=== PATIENT | female | born 1965 | race Caucasian/White ===

== ENCOUNTER 2020-06-26 20:47 | Emergency (ER) | payer OTHER ==
[~2020-06-26] VITALS: Ht 182.9 cm; Wt 89.0 kg
[~2020-06-26 20:47] MED LIST: CHOL200024 PO; LEVO112T2 PO; LIOT5TAB10 PO; MULT-26 PO; NORG1TAB32 PO
[2020-06-26] MEDS ORDERED: LIDOCAINE 1%, 10ML INFIL ONE (21:30)
--- NOTE | 2020-06-26 21:36 | NUR ---
PT. IS A & O X 4 WITH A GCS OF 15. PT. REPORTS FALLING AT HOME AND HITTING HER HEAD ON A TABLE WITH + LOC. PT. STATES SHE DOESN'T TAKE BLOOD THINNERS. PT.'S REPORTS THE PT. DOES DRINK 2 TO 3 GLASSES OF WINE NIGHTLY AND IS ON GABAPENTIN FOR HER NEUROSARCOIDOSIS. PT.'S LUNGS ARE CTA. MM ARE PINK AND MOIST WITH PULSES +2 THROUGHOUT. PT.'S ABD. IS SOFT AND ROUND WITH BS + X 4 QUADS. PT. DOES HAVE A WOUND TO HER RIGHT SKULL THAT IS OOZING A SMALL AMOUNT OF BLOOD. PT.'S WOUND WAS DRIED AND THE PT. WAS TAKEN TO CT SCAN. PT. DOES NOT C/O NECK OR BACK PAIN AT THIS TIME. SIDERAILS REMAIN UP X 2.
[2020-06-26] MEDS ORDERED: BACL20TA PO (21:48)
[2020-06-26] MEDS ORDERED: [UNRECOGNIZED DRUG - OTHER] (21:48)
[2020-06-26] MEDS ORDERED: DULO30CA2 PO (21:48)
[2020-06-26] MEDS ORDERED: GABA600T7 PO (21:48)
[2020-06-26] MEDS ORDERED: LEVO125T5 PO (21:48)
[2020-06-26] MEDS ORDERED: TIZANIDINE (21:48)
--- NOTE | 2020-06-26 21:49 | NUR ---
PT. RETURNS FROM CT SCAN. PT.'S HAS A ONE INCH LACERATION TO HER RIGHT SKULL. PT.'S WOUND WAS IRRIGATED AND CLEANSED. PT. IS TOLERATING THE PROCEDURE WELL.
[2020-06-26] MEDS ORDERED: LIDOCAINE-MPF 1%, 5ML ONE (22:42)
[2020-06-26] MEDS ORDERED: KETOROLAC 30 MG/1 ML ONE (22:43)
[2020-06-26] MEDS ORDERED: DIPHENHYDRAMINE 25 MG CAPSULE ONE (22:44)
[2020-06-26] MEDS ORDERED: DIPHENHYDRAMINE 25 MG CAPSULE PO ONE (23:30)
[2020-06-26] MEDS ORDERED: KETOROLAC 30 MG/1 ML IM ONE (23:30)
[2020-06-26 23:45] VITALS: BP 120/74
--- NOTE | 2020-06-26 23:54 | NUR ---
Patient and significant other given discharge instructions and they have confirmed that they understand the instructions, all questions answered. Patient stable and wheeled out with to private vehicle.
== END 2020-06-26 23:55 | disposition home or self-care (01) ==
LOC: ED 21:20
DX: S01.01XA Laceration without foreign body of scalp, initial encounter (principal); R55 Syncope and collapse; W01.0XXA Fall on same level from slipping, tripping and stumbling without subsequent striking against object, initial encounter; Y93.89 Activity, other specified; Y92.009 Unspecified place in unspecified non-institutional (private) residence as the place of occurrence of the external cause; Y99.8 Other external cause status
CPT/HCPCS: 12032; 70450; 72125; 96372; 99285; J1885; Q0163

== ENCOUNTER 2020-07-30 13:00 | Outpatient (CLI) | payer OTHER ==
[~2020-07-30 13:00] MED LIST changes: +BACL20TA PO; +DULO30CA2 PO; +GABA600T7 PO; +LEVO125T5 PO; +TIZANIDINE; +[UNRECOGNIZED DRUG - OTHER]
== END 2020-07-30 23:59 | disposition home or self-care (01) ==
LOC: CFH 13:00
PROVIDERS: ATTEND Naturopath
DX: Z12.31 Encounter for screening mammogram for malignant neoplasm of breast (principal)
CPT/HCPCS: 77063; 77067

== ENCOUNTER 2020-10-08 05:59 | Observation (INO) | payer OTHER ==
[2020-10-05 11:00] LABS: INTERNATIONAL NORMALIZED RATIO 1.07 (0.93-1.1); PROTHROMBIN TIME 11.4 Seconds (9.6-11.5)
[~2020-10-08] VITALS: Ht 182.9 cm; Wt 90.0 kg
[~2020-10-08 05:59] MED LIST changes: +DULO60CA7 PO; +LEVO88TA4 PO; +MYCO500T PO; +TIZA4TAB2 PO
[2020-10-08] MEDS ORDERED: LACTATED RINGERS 1,000 ML IV SCH (06:30)
[2020-10-08] MEDS ORDERED: CHLORHEXIDINE 15 ML UDC PO ONE (06:30)
[2020-10-08] MEDS ORDERED: KETOROLAC 60 MG/2 ML ONE (06:35)
[2020-10-08] MEDS ORDERED: VANCOMYCIN 1,000 MG ONE (06:36)
[2020-10-08] MEDS ORDERED: ROPIvacaine/PF 0.5%, 20 ML ONE (06:36)
[2020-10-08] MEDS ORDERED: TRANEXAMIC ACID 100 MG/ML, 10ML ONE ×2 (06:36)
[2020-10-08] MEDS ORDERED: ROPIvacaine/PF 0.5%, 30 ML ONE (06:36)
[2020-10-08] MEDS ORDERED: EPINEPHRINE 1 MG/ML, 1ML ONE (06:36)
[2020-10-08] MEDS ORDERED: SODIUM CHLORIDE 0.9% 50 ML ONE (06:37)
[2020-10-08] MEDS ORDERED: MIDAZOLAM 1 MG/ML, 2ML ONE (06:42)
[2020-10-08] MEDS ORDERED: FENTANYL PF 250 MCG/5ML ONE (06:42)
[2020-10-08] MEDS ORDERED: CEFAZOLIN 1,000 MG ONE ×2 (06:46)
[2020-10-08] MEDS ORDERED: PROPOFOL 10 MG/ML, 20ML ONE (06:46)
[2020-10-08] MEDS ORDERED: ONDANSETRON 2MG/ML, 2ML ONE ×3 (06:46→08:43)
[2020-10-08] MEDS ORDERED: ROCURONIUM 10MG/ML,5ML ONE (06:46)
[2020-10-08] MEDS ORDERED: NS + 20MEQ KCL 1,000 ML IV SCH (07:00)
[2020-10-08] MEDS: CEFAZOLIN PMX 2GM/50ML 50 ML IVPB SCH ×4 (07:00→23:52)
[2020-10-08] MEDS ORDERED: ACETAMINOPHEN 650 MG/20.3 ML UDC PO PRN (07:00)
[2020-10-08] MEDS ORDERED: ONDANSETRON 4 MG TABLET PO PRN (07:00)
[2020-10-08] MEDS ORDERED: OXYcodone IR 5MG TABLET PO PRN (07:00)
[2020-10-08] MEDS ORDERED: ONDANSETRON 2MG/ML, 2ML IV PRN (07:00)
[2020-10-08] MEDS ORDERED: SENNA/DOCUSATE TABLET PO PRN (07:00)
[2020-10-08] MEDS ORDERED: HYDROcodone/APAP 5/325 TABLET PO PRN (07:00)
[2020-10-08] MEDS ORDERED: MAGNESIUM HYDROXIDE 8%, 30ML UDC PO PRN (07:00)
[2020-10-08] MEDS ORDERED: ZOLPIDEM 5MG TABLET PO PRN (07:00)
[2020-10-08] MEDS ORDERED: DIPHENHYDRAMINE 50 MG CAPSULE PO PRN (07:00)
[2020-10-08] MEDS ORDERED: BISACODYL 10 MG SUPP PR PRN (07:00)
[2020-10-08] MEDS ORDERED: PROMETHAZINE 25 MG/ML, 1ML IVPush PRN (07:30)
[2020-10-08] MEDS ORDERED: DIPHENHYDRAMINE 50 MG/ML, 1ML IVPush PRN (07:30)
[2020-10-08] MEDS ORDERED: MEPERIDINE/PF 25MG/0.5ML IVPush PRN (07:30)
[2020-10-08] MEDS ORDERED: ACETAMINOPHEN 325 MG TABLET PO PRN (07:30)
[2020-10-08] MEDS ORDERED: ONDANSETRON 2MG/ML, 2ML IVPush PRN (07:30)
[2020-10-08] MEDS ORDERED: DIAZEPAM 5 MG/ML, 2ML IVPush PRN (07:30)
[2020-10-08] MEDS ORDERED: OXYcodone 5 MG/5 ML ORAL.SOL UDC PO PRN (07:30)
[2020-10-08] MEDS ORDERED: HYDROmorphone 1 MG/ML, 1ML INJ IVPush PRN (07:30)
[2020-10-08] MEDS ORDERED: LIDOCAINE-MPF 2% ,5ML ONE (07:33)
[2020-10-08] MEDS ORDERED: NEOSTIGMINE 1 MG/ML, 10ML ONE (07:44)
[2020-10-08] MEDS ORDERED: GLYCOPYRROLATE 0.2MG/1ML, 5ML ONE (07:44)
[2020-10-08] MEDS ORDERED: MEPERIDINE/PF 25MG/ML,1ML ONE (08:22)
[2020-10-08] MEDS ORDERED: FENTANYL PF 100 MCG/2ML ONE (08:33)
[2020-10-08] MEDS ORDERED: ACETAMINOPHEN 650 MG/20.3 ML UDC ONE (08:33)
[2020-10-08] MEDS ORDERED: OXYcodone 5 MG/5 ML ORAL.SOL UDC ONE (08:34)
[2020-10-08] MEDS: FENTANYL PF 100 MCG/2ML IV PRN ×2 (08:45→08:53)
[2020-10-08] MEDS: METHOCARBAMOL 1,000 MG in DEXTROSE 5% 100 ML IV PRN ×2 (08:52→09:52)
[2020-10-08] MEDS: DOCUSATE 100 MG CAPSULE PO SCH ×2 (09:00→21:28)
[2020-10-08] MEDS: LEVOTHYROXINE 88 MCG TABLET PO SCH (09:00)
[2020-10-08] MEDS ORDERED: EPHEDRINE 50 MG/ML, 1ML ONE (09:47)
[2020-10-08] MEDS: EPHEDRINE 50 MG/ML, 1ML IVPush PRN ×3 (09:50→10:23)
[2020-10-08] MEDS ORDERED: EPHEDRINE 50 MG/ML, 1ML IM ONE (10:30)
[2020-10-08 15:45] VITALS: BP 101/68
[2020-10-08] MEDS: ASPIRIN 81 MG TABLET EC PO SCH (18:23)
[2020-10-08 18:52] VITALS: BP 92/62
[2020-10-08] MEDS: TIZANIDINE 4MG TABLET PO SCH (19:33)
[2020-10-08 21:27] VITALS: BP 91/58
[2020-10-08] MEDS: GABAPENTIN 300 MG CAPSULE PO SCH (21:28)
[2020-10-08] MEDS ORDERED: KETOROLAC 30 MG/1 ML IVPush PRN (22:00)
[2020-10-08] MEDS: ACETAMINOPHEN 500 MG TABLET PO PRN (22:17)
[2020-10-08 23:57] VITALS: BP 92/61
[2020-10-09] MEDS: NS + 20MEQ KCL 1,000 ML IV SCH ×3 (04:01→20:55)
[2020-10-09 04:43] VITALS: BP 99/62
[2020-10-09] MEDS: ACETAMINOPHEN 500 MG TABLET PO PRN ×3 (05:21→18:25)
[2020-10-09] MEDS: ASPIRIN 81 MG TABLET EC PO SCH ×2 (05:41→18:25)
[2020-10-09] MEDS ORDERED: DEXAMETHASONE 4 MG/ML, 1ML IVPush SCH (06:00)
[2020-10-09 07:23] VITALS: BP 90/62
[2020-10-09] MEDS: TIZANIDINE 4MG TABLET PO SCH (07:25)
[2020-10-09] MEDS: DOCUSATE 100 MG CAPSULE PO SCH ×2 (09:38→22:19)
[2020-10-09] MEDS: LEVOTHYROXINE 88 MCG TABLET PO SCH (09:38)
[2020-10-09] MEDS: GABAPENTIN 300 MG CAPSULE PO SCH ×2 (09:38→22:18)
[2020-10-09] MEDS: DULOXETINE 30 MG CAPSULE.DR PO SCH (09:40)
[2020-10-09 13:53] VITALS: BP 88/58
[2020-10-09 19:33] VITALS: BP 101/70
[2020-10-10 00:45] VITALS: BP 100/67
[2020-10-10] MEDS: NS + 20MEQ KCL 1,000 ML IV SCH (02:57)
[2020-10-10] MEDS: ACETAMINOPHEN 500 MG TABLET PO PRN (05:36)
[2020-10-10] MEDS: ASPIRIN 81 MG TABLET EC PO SCH (05:36)
[2020-10-10 06:45] VITALS: BP 110/72
[2020-10-10] MEDS: DOCUSATE 100 MG CAPSULE PO SCH (09:00)
[2020-10-10] MEDS: LEVOTHYROXINE 88 MCG TABLET PO SCH (09:25)
[2020-10-10] MEDS: DULOXETINE 30 MG CAPSULE.DR PO SCH (09:25)
[2020-10-10] MEDS: GABAPENTIN 300 MG CAPSULE PO SCH (09:26)
[2020-10-10] MEDS: TIZANIDINE 4MG TABLET PO SCH (09:26)
[2020-10-10] MEDS ORDERED: TAMSULOSIN 0.4 MG CAP.ER.24H ONE (10:32)
[2020-10-10] MEDS ORDERED: TAMSULOSIN 0.4 MG CAP.ER.24H PO SCH (11:00)
[2020-10-11] MEDS ORDERED: TAMSULOSIN 0.4 MG CAP.ER.24H PO SCH (09:00)
== END 2020-10-10 11:35 | disposition home or self-care (01) ==
LOC: OUT 05:59 → 4NE 14:23 → OUT 22:56 → INTOOBSV 22:57 → 4NE 22:57 → OBSVTOIN 22:57 → DCLOUNGE 10-10 11:27
PROVIDERS: ADMIT Orthopaedic Surgery; ATTEND Orthopaedic Surgery
DX: M16.11 Unilateral primary osteoarthritis, right hip (principal); Z20.822 Contact with and (suspected) exposure to COVID-19; R33.9 Retention of urine, unspecified; E03.9 Hypothyroidism, unspecified; Z79.899 Other long term (current) drug therapy
CPT/HCPCS: 27130; 36415; 72170; 73501; 83036; 85014; 85018; 85610; 85730; 87081; 93005; 96361; 96365; 96366; 96375; 97162; 97166; C1713; C1776; G0378; J0171; J0690; J1885; J2175; J2250; J2405; J2704; J2710; J2795; J2800; J3010; J3370; J3480; J3490; J7120; U0003; 76000